=== PATIENT | male | born 1975 | race Caucasian/White ===

== ENCOUNTER 2024-07-25 15:42 | Emergency (ER) | payer SELFPAY ==
[2024-07-25 16:01] VITALS: BP 107/69
[2024-07-25 16:22] LABS: % Basophils 0.4 % (0-2); % Eosinophils 1.4 % (0-6); % Immature Granulocytes 0.2 % (0-0.5); Absolute Basophils 0.1 10^3/uL (0-0.2); Absolute Eosinophils 0.2 10^3/uL (0-0.7); Absolute Lymphocytes 1.8 10^3/uL (1.2-3.4); Absolute Monocytes 1.1 10^3/uL (0.1-0.6); Absolute Neutrophils 9.4 10^3/uL (1.4-6.5); Mean Corp Hgb Conc. 34.2 g/dL (33.0-37.0); Mean Corpuscular Hgb 29.7 pg (27.0-31.0); Mean Platelet Volume 8.6 fL (7.4-10.4); Nucleated Red Blood Cells % 0 % (-); Platelet Count 282 10^3/uL (130-400); Red Blood Cell Count 4.37 10^6/uL (4.70-6.10); Red Cell Dist. Width 12.8 % (11.5-14.5); White Blood Cell Count 12.6 10^3/uL (4.8-10.8)
[2024-07-25 16:38] LABS: ALT (SGPT) 72 U/L (0-50); AST (SGOT) 108 U/L (17-59); Albumin 4.2 g/dl (3.5-5.0); Alkaline Phosphatase 49 U/L (38-126); Blood Urea Nitrogen 36 mg/dl (9-20); Calcium 9.1 mg/dl (8.4-10.2); Carbon Dioxide 32 mmol/L (22-30); Chloride 97 mmol/L (98-107); Glucose 88 mg/dl (70-99); Potassium 4.3 mmol/L (3.5-5.1); Sodium 135 mmol/L (135-145); Total Bilirubin 0.2 mg/dl (0.2-1.3); eGFR > 60.00
[2024-07-25 16:41] LABS: Alcohol None Detected
[2024-07-25 20:19] VITALS: BP 115/61
--- NOTE | 2024-07-25 20:42 | ED.GENMED ---
History of Present Illness
General
Chief Complaint: Crisis Evaluation
Source: patient
Exam Limitations: none
Time Seen by Provider: 07/25/24 19:21
Nursing documentation reviewed up to this point in time: agreed with
History of Present Illness
History of Present Illness:
49-year-old male with mental illness homeless presents for evaluation would like to talk to crisis is feeling suicidal at times, no specific plan, denies any drug overdose denies any alcohol, was living in [facility] then moved to [facility]
recently been living on the streets
Past History
Past History
ED Past Medical History: Psychiatric
Social History
Tobacco: Non-smoker
Alcohol: None
Drug: None
Personal: Single
Living: homeless
Employment: Not employed
Phy Exam
Physical Exam
Physical Exam:
Physical Exam
General: no apparent distress, not acutely ill
Neck: No trauma
Heart: Regular
Lungs: no acute respiratory distress. clear bilaterally
Neuro: alert and oriented. no focal neurological deficits
Skin: no rash
Psychiatric: Affect is flat he is cooperative admits to depression
Extremities: no edema.
Course
Orders/Labs/Results
Orders:
Orders
07/25/24 16:11
Alcohol Urgent
Complete Blood Count/With Diff Urgent
Comprehensive Metabolic Panel Urgent
07/25/24 19:15
Crisis Consult Urgent
Reason for Consult: wants resources
Abnormal Lab Results
07/25/24
16:11
WBC 12.6 H 10^3/uL
(4.8-10.8)
RBC 4.37 L 10^6/uL
(4.70-6.10)
Hct 38.0 L %
(39.0-52.0)
Absolute Neuts (auto) 9.4 H 10^3/uL
(1.4-6.5)
Absolute Monos (auto) 1.1 H 10^3/uL
(0.1-0.6)
Lymphocytes % 14.0 L %
(20.5-51.1)
Chloride 97 L mmol/L
(98-107)
Carbon Dioxide 32 H mmol/L
(22-30)
BUN 36 H mg/dl
(9-20)
AST 108 H U/L
(17-59)
ALT 72 H U/L
(0-50)
07/25/24 16:11
07/25/24 16:11
Vital Signs
Initial and Last Documented VS:
Initial Vital Signs
Temp Pulse Resp BP Pulse Ox
98.1 F 79 18 107/69 100
07/25/24 16:01 07/25/24 16:01 07/25/24 16:01 07/25/24 16:01 07/25/24 16:01
Last Documented Vital Signs
Temp Pulse Resp BP Pulse Ox
98.4 F 77 18 115/61 98
07/25/24 20:19 07/25/24 20:19 07/25/24 20:19 07/25/24 20:19 07/25/24 20:19
MDM/Problems Addressed
Differential Diagnosis Includes:
Mental illness psychosis homelessness
MDM/Problems Addressed:
Homelessness mental illness psychosis depression
Chronic conditions affecting care: Psychiatric illness
Acute Exacerbation and/or Progression of Chronic Illness: Psychiatric illness
*Critical Care Note
Total Time (30-74mins, 75-104mins- exclusive of procedures): Not Applicable
Update Note
Update Note:
Vital signs stable labs are noted patient BUN/creatinine she was up, patient tells me is eating okay pushing p.o. fluids, other than he is medically stable for psychiatric evaluation placement
ED Attending Note
-
Portions of this chart may have been created with voice recognition software.� Occasional wrong word or��sound alike� substitutions may have occurred due to the inherent limitations of voice recognition software.
Discharge Plan
Departure
Patient Disposition: [facility]
Date of Disposition: 07/25/24
Time of Disposition: 20:49
Condition: Good
Discharge Problem:
Depression
Instructions: Depression, Adult (DC)
Referrals:
NONE,* [Family Provider] -
Interventions
Interventions:
*Risk Screen - Suicide Last Done: 07/25/24 15:43
*General Assessment Last Done: 07/25/24 16:01
*Neglect/Abuse Screening Last Done: 07/25/24 16:01
*ED COVID-19 Vaccine History Last Done: 07/25/24 19:33
ED-Psychological Assessment Last Done: 07/25/24 19:33
Discharge Date and Time
Print Language: TAJIK
== END 2024-07-25 21:16 ==
LOC: EMR 15:42
PROVIDERS: Emergency Medicine; EMERGENCY PHYSICIAN Emergency Medicine
DX: F32.A Depression, unspecified (principal); Z59.00 Homelessness unspecified
CPT/HCPCS: 99285; 80053; 82077; 85025

== ENCOUNTER 2024-08-18 13:49 | Emergency (ER) | payer MEDICARE, OTHER, SELFPAY ==
--- NOTE | 2024-08-18 13:50 | ED.GENMED ---
History of Present Illness
General
Chief Complaint: Suicidal Ideation
Time Seen by Provider: 08/18/24 13:50
History of Present Illness
History of Present Illness:
TIME OF INITIAL ENCOUNTER:
HPI: The [place]. He was seen here about a month ago with depression kind of symptoms and was transferred to [place]. He felt that that place 'was a trap'. Today, at 9 AM, he took 30-40
propranolol 20 mg in attempt to end his life. He does not regret doing this if still feels suicidal. He has been living on the streets and was originally [place].
EXAM:
GENERAL: See below
HEENT: Moist oral mucosa
CARDIOVASCULAR: No murmurs, normal heart rate, regular rhythm, No chest wall tenderness
PULMONARY: No respiratory distress, breath sounds are clear and equal
ABDOMEN: Soft with no peritoneal signs, no tenderness
NEUROLOGIC: Excellent strength all extremities, no coordination deficits
PSYCHIATRIC: Flat depressed affect
EXTREMITIES: Nontender, no edema, moves all extremities equally
SKIN: No rash, no lesions
NUMBER AND COMPLEXITY OF PROBLEMS ADDRESSED AT THE ENCOUNTER
� Chronic conditions affecting care: Patient has a history of bipolar and schizoaffective disorders
� Acute Exacerbation and/or Progression of Chronic Illness: This is an acute problem
� Differential Diagnosis includes: Beta-farida overdose, coingestion, suicide attempt, bradycardia
AMOUNT AND/OR COMPLEXITY OF DATA TO BE REVIEWED AND ANALYZED
� I performed an independent evaluation of and my interpretation is:
EKG: Sinus 57, QTc 401 ms, no acute ST abnormality
CT:
X-rays:
Laboratory Studies: CBC and chemistries unremarkable, salicylates and Tylenol undetected, alcohol undetected
Other:
� Review of other/old records: I reviewed records. The patient was seen here last month and the note indicates the patient is homeless and felt suicidal at times and had been living on the streets. BUN to creatinine ratio was
elevated last month; minimal transaminase elevation noted.
� Clinical information was obtained by an independent historian: EMS notes
� Prescriptions/Medications Considered but not given:
� Further testing considered but not performed:
RISK OF COMPLICATIONS AND/OR MORBIDITY OR MORTALITY OF PATIENT MANAGEMENT
� Social determinants of health affecting care: Homeless
� Discussion with other providers: I called [facility] to discussed with poison control at 2:09 PM�awaiting callback. I have asked crisis for a consult at about 3:30 PM
� Escalation of care including admission/observation vs risk of discharge considered:
ANY OTHER UPDATES:
I spoke to [facility]/poison control at about 2:40 PM. They recommend a period of observation between 4 to 6 hours. They recommended no signs of symptoms suggestive of an EKG and assuming no changes can be medically cleared.
They recommend to watch for seizure.
4 PM: Heart rate 58
5:30 PM: Heart rate 68, no other issues
8 PM: Patient is medically clear. He has had no further changes in vital signs. He is medically cleared from a toxicology standpoint. Awaiting transport at 11 PM to a facility near [place].
Past History
Past History
ED Past Medical History: Psychiatric
Social History
Tobacco: Non-smoker
Alcohol: None
Drug: None
Personal: Single
Living: homeless
Employment: Not employed
Phy Exam
Physical Exam
Physical Exam:
See HPI
Course
Orders/Labs/Results
Orders:
Orders
08/18/24 13:56
Electrocardiogram (*1) Urgent
Reason for Study: Other
Other Reason for Exam: overdose
EKG- Treatment ONCE
08/18/24 14:05
1:1 Observation - Suicide/ Violent Behavior As Directed
08/18/24 14:12
Acetaminophen Urgent
Alcohol Urgent
Complete Blood Count/With Diff Urgent
Comprehensive Metabolic Panel Urgent
Magnesium Urgent
Salicylate Urgent
08/18/24 14:14
0.9% Sodium Chloride 1000 ml [Nss] 1,000 ml IV BOLUS
08/18/24 14:56
Crisis Consult Urgent
Reason for Consult: suicide attempt
08/18/24 15:44
Urine Drug Abuse Screen Urgent
Date Specimen was Collected: 08/18/24
Time Specimen was Collected: 15:03
08/18/24 18:13
Electrocardiogram (*1) Urgent
Reason for Study: QTc Monitoring
EKG- Treatment ONCE
08/18/24 19:40
Lorazepam [Ativan] 1 mg IV NOW STA
Abnormal Lab Results
08/18/24 08/18/24
14:12 15:44
Lymphocytes % 19.2 L %
(20.5-51.1)
Glucose 132 H mg/dl
(70-99)
Salicylates < 1.0 L mg/dl
(2.0-20.0)
Acetaminophen < 10 L ug/ml
(10-30)
U Marijuana (THC) Screen Positive H
(Negative)
08/18/24 14:12
08/18/24 14:12
Vital Signs
Initial and Last Documented VS:
Initial Vital Signs
Temp Pulse Resp BP Pulse Ox
36.4 C 59 20 120/66 100
08/18/24 13:59 08/18/24 13:59 08/18/24 13:59 08/18/24 13:59 08/18/24 13:59
Last Documented Vital Signs
Temp Pulse Resp BP Pulse Ox
36.4 C 59 12 109/53 99
08/18/24 13:59 08/18/24 19:45 08/18/24 19:45 08/18/24 18:42 08/18/24 19:45
*Critical Care Note
Total Time (30-74mins, 75-104mins- exclusive of procedures): Not Applicable
ED Attending Note
-
Portions of this chart may have been created with voice recognition software.� Occasional wrong word or��sound alike� substitutions may have occurred due to the inherent limitations of voice recognition software.
Discharge Plan
Departure
Patient Disposition: Psych Facility
Date of Disposition: 08/18/24
Time of Disposition: 18:32
Discharge Problem:
Suicide ideation
Prescriptions:
No Action
propranolol 20 mg Tablet
40 mg PO BID
Patient Comments:
took 30-40 tabs of these
Referrals:
UNKNOWN - PT NOT,INTERVIEWE [Family Provider] -
Interventions
Interventions:
*Risk Screen - Suicide Last Done: 08/18/24 14:02
*General Assessment Last Done: 08/18/24 14:22
*Neglect/Abuse Screening Last Done: 08/18/24 14:22
ED- Fall Risk Assessment Last Done: 08/18/24 16:02
*ED COVID-19 Vaccine History Last Done: 08/18/24 14:11
ED- Cardiac Assessment Last Done: 08/18/24 14:23
ED- Neurological Assessment Last Done: 08/18/24 14:23
ED-Psychological Assessment Last Done: 08/18/24 14:26
ED- Pulmonary Assessment Last Done: 08/18/24 14:25
Discharge Date and Time
Print Language: DANISH
[2024-08-18 13:59] VITALS: BP 120/66
[2024-08-18] MEDS: NSS 1000 IV (14:15)
[2024-08-18 14:19] LABS: % Basophils 0.6 % (0-2); % Eosinophils 2.3 % (0-6); % Immature Granulocytes 0.2 % (0-0.5); % Lymphocytes 19.2 % (20.5-51.1); % Monocytes 4.9 % (1.7-9.3); % Neutrophils 72.8 % (42.2-75.2); Absolute Basophils 0.1 10^3/uL (0-0.2); Absolute Eosinophils 0.2 10^3/uL (0-0.7); Absolute Lymphocytes 1.7 10^3/uL (1.2-3.4); Absolute Monocytes 0.4 10^3/uL (0.1-0.6); Absolute Neutrophils 6.4 10^3/uL (1.4-6.5); Hematocrit 41.6 % (39.0-52.0); Hemoglobin 14.2 g/dL (13.0-18.0); Mean Corp Hgb Conc. 34.1 g/dL (33.0-37.0); Mean Corpuscular Hgb 29.6 pg (27.0-31.0); Mean Corpuscular Volume 86.8 fL (80.0-94.0); Mean Platelet Volume 8.7 fL (7.4-10.4); Nucleated Red Blood Cells % 0 % (-); Platelet Count 269 10^3/uL (130-400); Red Blood Cell Count 4.79 10^6/uL (4.70-6.10); Red Cell Dist. Width 12.5 % (11.5-14.5); White Blood Cell Count 8.8 10^3/uL (4.8-10.8)
[2024-08-18 14:20] VITALS: BP 120/66
[2024-08-18 14:36] LABS: ALT (SGPT) 24 U/L (0-50); AST (SGOT) 27 U/L (17-59); Acetaminophen < 10 ug/ml (10-30); Albumin 4.1 g/dl (3.5-5.0); Alkaline Phosphatase 58 U/L (38-126); Blood Urea Nitrogen 12 mg/dl (9-20); Calcium 8.6 mg/dl (8.4-10.2); Carbon Dioxide 27 mmol/L (22-30); Chloride 101 mmol/L (98-107); Glucose 132 mg/dl (70-99); Salicylate < 1.0 mg/dl (2.0-20.0); Sodium 136 mmol/L (135-145); Total Bilirubin 0.5 mg/dl (0.2-1.3); Total Protein 6.8 g/dl (6.3-8.2); eGFR > 60.00
[2024-08-18 14:37] LABS: Alcohol None Detected
[2024-08-18 15:05] VITALS: BP 122/69
[2024-08-18 16:09] LABS: Amphetamines Negative (Negative); Barbiturates Negative (Negative); Benzodiazepines Negative (Negative); Buprenorphine Negative (Negative); Cocaine Negative (Negative); Marijuana Positive (Negative); Methadone Negative (Negative); Methamphetamines Negative (Negative); Opiates Negative (Negative); Phencyclidine Negative (Negative); Tricyclic Antidepressants Negative (Negative)
[2024-08-18 17:42] VITALS: BP 112/61
[2024-08-18 18:42] VITALS: BP 109/53
[2024-08-18] MEDS: ATIVAN 1 MG IV (19:44)
[2024-08-18 22:00] VITALS: BP 96/46
[2024-08-18] MEDS: ATIVAN 1 MG PO (23:51)
== END 2024-08-19 00:35 ==
LOC: EMR 13:49
PROVIDERS: EMERGENCY PHYSICIAN Emergency Medicine
DX: R45.851 Suicidal ideations (principal); F31.9 Bipolar disorder, unspecified; F25.9 Schizoaffective disorder, unspecified; Z59.02 Unsheltered homelessness
CPT/HCPCS: 99285; 96374; 80053; 80143; 80179; 80306; 82077; 83735; 85025; 93005